=== PATIENT | male | born 1960 | race Caucasian/White ===

== ENCOUNTER → 2023-10-07 09:30 | Outpatient (REF) | payer OTHER, SELFPAY | LOC: RAD 09:30 | PROVIDERS: ATTENDING PHYSICIAN Physician Assistant Medical | DX: M25.561 Pain in right knee (principal) | CPT/HCPCS: 73564 ==

== ENCOUNTER → 2023-10-26 13:18 | Outpatient (REF) | payer OTHER, SELFPAY | LOC: HWRAD 13:18 | PROVIDERS: ATTENDING PHYSICIAN Physician Assistant Medical | DX: R22.42 Localized swelling, mass and lump, left lower limb (principal) | CPT/HCPCS: 76882 ==

== ENCOUNTER 2024-04-24 15:31 | Emergency (ER) | payer OTHER, SELFPAY ==
[2024-04-24 15:37] VITALS: BP 124/77
[2024-04-24 16:47] VITALS: BMI 31.3
--- NOTE | 2024-04-24 16:48 | ED.GENMED ---
History of Present Illness
General
Chief Complaint: Musculo-Skeletal Complaint
Source: patient
Exam Limitations: none
Time Seen by Provider: 04/24/24 16:30
Nursing documentation reviewed up to this point in time: agreed with
History of Present Illness
History of Present Illness:
63-year-old male with no reported chronic medical issues presents to the emergency room for evaluation of chest wall pain after blunt trauma. Trauma occurred 2 days ago. Patient was working underneath a golf cart which was elevated on a santhosh. He
says that the cart fell off of the santhosh and landed on top of him�he was laying flat on his back and it landed on his chest. He says that there was room between the golf cart and the ground and he was able to slide out but has had pain in his ribs
since the trauma. Decided to come to the emergency to be evaluated. He denies any shortness of breath. He denies any abdominal pain. He denies any head trauma and does not have any headache or neck pain. He denies any pain in his back. He
denies any injuries to his arms or his legs. He denies being on any blood thinners.
Past History
Past History
ED Past Medical History: None
ED Past Surgical History: None
Social History
Tobacco: Non-smoker
Review of Systems
Review of Systems
All Other Systems: ROS reviewed and negative except as documented in HPI and ROS
Respiratory: Denies trouble breathing
Cardiac: Reports chest pain
ABD/GI: Denies abdominal pain, nausea or vomiting
: Denies flank pain
Musculoskeletal: Denies joint pain, neck pain or back pain
Neurological: Denies dizzy, headache, weakness or numbness
Phy Exam
Physical Exam
Physical Exam:
General: Awake, alert, oriented x3; no acute distress
Head: Normocephalic, atraumatic
Eyes: Conjunctiva normal
Throat: Airway intact, handling secretions
Neck: Trachea midline, no cervical spine tender
Lungs: Clear to auscultation bilaterally, no wheezing, rales, rhonchi
Heart: Regular rate; he has bilateral lower parasternal tenderness somewhat worse on the left; he has tenderness along the right lower ribs 8 through 10 anterior lateral; no tenderness on the posterior ribs
Abd: Soft, non distended, mild tenderness subxiphoid and upper abdomen, no abdominal bruising
Back: No signs of trauma the back or flank and no tenderness in the posterior ribs, thoracic or lumbar spine
Neuro: No gross deficits, ambulatory
Extremities: Atraumatic, moving all extremities comfortably with no pain, warm well-perfused
Scores
Heart Failure Risk
Heart Failure Risk Score: Not Applicable
Heart Score for Chest Pain Patients
STEMI patient?: Not applicable
Withdrawal Assessment of Alcohol
Withdrawal Assessment Completed?: Not applicable
Course
Orders/Labs/Results
Orders:
Orders
04/24/24 15:43
Electrocardiogram (*1) Urgent
Reason for Study: Other
Other Reason for Exam: chest trauma
CR Ribs-doyle 4 Vw W/pa Chest Urgent
Comment:
Reason For Exam: chest trauma
04/24/24 15:44
EKG- Treatment ONCE
04/24/24 16:32
Type+Screen Urgent
CT Abd/pelvis W Iv Cont Urgent
Comment:
Reason For Exam: crushed by golf cart; chest pain
CT Chest With Iv Contrast Urgent
Comment:
Reason For Exam: crushed by golf cart; chest pain
Complete Blood Count/With Diff Urgent
Comprehensive Metabolic Panel Urgent
Vital Signs
Initial and Last Documented VS:
Initial Vital Signs
Temp Pulse Resp BP Pulse Ox
37.2 C 73 18 124/77 98
04/24/24 15:37 04/24/24 15:37 04/24/24 15:37 04/24/24 15:37 04/24/24 15:37
Last Documented Vital Signs
Temp Pulse Resp BP Pulse Ox
37.2 C 73 18 124/77 98
04/24/24 15:37 04/24/24 15:37 04/24/24 15:37 04/24/24 15:37 04/24/24 15:37
MDM/Problems Addressed
Differential Diagnosis Includes:
Blunt chest trauma: Differential includes rib fractures, pulmonary contusion, pneumothorax, bruised ribs; given location of tenderness concern also for intra-abdominal trauma such as hepatic or splenic laceration
MDM/Problems Addressed:
63-year-old male presents 2 days removed from blunt trauma as described above�was working underneath a golf cart when he fell onto his chest. Complaining of pain in the ribs. Vital signs normal. Exam as above. He was sent for a chest x-ray in
triage which showed no pneumothorax on my review. Will place an IV send for CT of the chest/abdomen/pelvis. Check screening labs. Reassess after the above.
*Radiology
Radiology exam reviewed: preliminary read by ED provider and radiology read reviewed
*Pulse Oximetry
Patient hypoxic: no
*EKG
Interpreted by ED Provider?: Yes
Heart Rate: 69
Rate: normal
Rhythm: sinus
[place]: normal axis
Interval: normal interval
QRS Pattern: normal QRS
Ischemia: no ischemia
*Critical Care Note
Total Time (30-74mins, 75-104mins- exclusive of procedures): Not Applicable
Data Reviewed
Source: patient and records
ED Attending Note
-
Portions of this chart may have been created with voice recognition software.� Occasional wrong word or��sound alike� substitutions may have occurred due to the inherent limitations of voice recognition software.
Discharge Plan
Interventions
Interventions:
*Risk Screen - Suicide Last Done: 04/24/24 16:47
*General Assessment Last Done: 04/24/24 16:47
ED- Fall Risk Assessment Last Done: 04/24/24 16:47
*ED COVID-19 Vaccine History Last Done: 04/24/24 16:47
ED-Musculoskeletal Assessment Last Done: 04/24/24 16:47
Discharge Date and Time
Print Language: MONGOLIAN
[2024-04-24 17:01] LABS: % Basophils 0.6 % (0-2); % Eosinophils 3.2 % (0-6); % Immature Granulocytes 0.4 % (0-0.5); % Lymphocytes 12.8 % (20.5-51.1); % Monocytes 7.4 % (1.7-9.3); % Neutrophils 75.6 % (42.2-75.2); Absolute Basophils 0.1 10^3/uL (0-0.2); Absolute Eosinophils 0.3 10^3/uL (0-0.7); Absolute Lymphocytes 1.3 10^3/uL (1.2-3.4); Absolute Monocytes 0.8 10^3/uL (0.1-0.6); Absolute Neutrophils 7.8 10^3/uL (1.4-6.5); Hematocrit 40.8 % (39.0-52.0); Hemoglobin 14.1 g/dL (13.0-18.0); Mean Corp Hgb Conc. 34.6 g/dL (33.0-37.0); Mean Corpuscular Hgb 29.6 pg (27.0-31.0); Mean Corpuscular Volume 85.5 fL (80.0-94.0); Mean Platelet Volume 9.5 fL (7.4-10.4); Nucleated Red Blood Cells % 0 % (-); Platelet Count 259 10^3/uL (130-400); Red Blood Cell Count 4.77 10^6/uL (4.70-6.10); Red Cell Dist. Width 13.6 % (11.5-14.5); White Blood Cell Count 10.3 10^3/uL (4.8-10.8)
[2024-04-24 17:14] LABS: ALT (SGPT) 24 U/L (0-50); AST (SGOT) 28 U/L (17-59); Albumin 4.3 g/dl (3.5-5.0); Alkaline Phosphatase 45 U/L (38-126); Blood Urea Nitrogen 10 mg/dl (9-20); Calcium 9.1 mg/dl (8.4-10.2); Carbon Dioxide 25 mmol/L (22-30); Chloride 104 mmol/L (98-107); Estimated Creatinine Clearance 83 ml/min; Glucose 96 mg/dl (70-99); Potassium 4.3 mmol/L (3.5-5.1); Sodium 139 mmol/L (135-145); Total Bilirubin 0.9 mg/dl (0.2-1.3); Total Protein 6.9 g/dl (6.3-8.2); eGFR > 60.00
[2024-04-24 20:56] VITALS: BP 121/83
== END 2024-04-24 20:57 | disposition home or self-care (01) ==
LOC: EMR 15:31
PROVIDERS: EMERGENCY PHYSICIAN Emergency Medicine; FAMILY PHYSICIAN Physician Assistant Medical
DX: S29.9XXA Unspecified injury of thorax, initial encounter (principal); R07.9 Chest pain, unspecified; X58.XXXA Exposure to other specified factors, initial encounter; Y93.89 Activity, other specified
CPT/HCPCS: 99285; 71111; 71260; 74177; 80053; 85025; 86850; 86900; 86901; 93005; Q9967

== ENCOUNTER → 2024-10-10 15:08 | Outpatient (REF) | payer OTHER, SELFPAY | LOC: RAD 15:08 | PROVIDERS: ATTENDING PHYSICIAN Family Medicine | DX: M25.561 Pain in right knee (principal) | CPT/HCPCS: 73564 ==

== ENCOUNTER → 2024-10-16 09:29 | Outpatient (REF) | payer OTHER, SELFPAY | LOC: PAVMRI 09:29 | PROVIDERS: ATTENDING PHYSICIAN Orthopaedic Surgery Sports Medicine; FAMILY PHYSICIAN Physician Assistant Medical | DX: M25.561 Pain in right knee (principal) | CPT/HCPCS: 73721 ==

== ENCOUNTER → 2025-04-10 08:50 | Outpatient (REF) | payer OTHER, SELFPAY | LOC: DHSLP 08:50 | PROVIDERS: ATTENDING PHYSICIAN Internal Medicine Critical Care Medicine; FAMILY PHYSICIAN Physician Assistant Medical | DX: G47.33 Obstructive sleep apnea (adult) (pediatric) (principal) | CPT/HCPCS: 95800 ==

== ENCOUNTER → 2025-04-16 15:20 | Outpatient (REF) | payer OTHER, SELFPAY | LOC: RAD 15:20 | PROVIDERS: ATTENDING PHYSICIAN Physician Assistant Medical | DX: K42.9 Umbilical hernia without obstruction or gangrene (principal) | CPT/HCPCS: 76705 ==

== ENCOUNTER 2025-07-04 06:31 | Day surgery (SDC) | payer OTHER, SELFPAY ==
[2025-06-26 13:36] VITALS: BMI 29.4
[2025-07-04] VITALS (9 sets, daily range): BP systolic 110–136; BP diastolic 66–81; BMI 29.4
[2025-07-04] MEDS: TYLENOL 1000 MG PO (10:13)
[2025-07-04] MEDS: NORMOSOL-R/PLASMALYTE-A 1000 IV (10:14)
--- NOTE | 2025-07-04 10:22 | W.SUR.PREOP ---
Pre-Operative Surgical Note
-
I have examined this patient prior to the performance of the scheduled procedure.
The patient's condition is unchanged from the time of the current History and
Physical and the patient is able to undergo the scheduled procedure.
--- NOTE | 2025-07-04 10:22 | HP.FOC2 ---
Focused History & Physical
Chief Complaint
HPI:
Chief Complaint: Umbilical hernia
HPI / Indication for Planned Procedure: This is a 65-year-old male who presents with a symptomatic umbilical hernia. Will plan for robotic umbilical hernia repair with mesh.
Relevant Past Medical History: Negative
Relevant Social History: Negative
Relevant Family History: Negative
Relevant Past Surgical History: Negative
Review of Systems
Review of Pertinent Systems: All Systems Negative
Medication
See Medication form for detailed medications: Yes
Medication List (including Herbals & OTC):
aspirin 81 mg tablet,delayed release 81 mg PO DAILY 06/26/25
tadalafil 1 tab PO HS 06/26/25
vitamin D3-vitamin K2 1 tab PO DAILY 06/26/25
Medications Reviewed: Yes
Allergies and Reactions
Patient has Allergies: No
Noted Allergies and Reactions:
Allergy/AdvReac Type Severity Reaction Status Date / Time
No Known Allergies Allergy Verified 07/04/25 10:07
Pertinent Physical Exam
All Other Systems: Negative
Head/Neck: Normal
Diagnosis / Assessment
This is a 65-year-old male who presents with a symptomatic umbilical hernia.
Plan / Procedure
Will plan for a robotic umbilical hernia repair with mesh.
Anesthesia/Sedation to be done by Anesthesia Provider: Yes
--- NOTE | 2025-07-04 12:03 | W.IMMPOSTOP ---
Surgical Immed Post Op Note
-
Primary Surgeon: Luis Angel Martinez MD
Assisting Surgeon: None
Pre-op Diagnosis: Umbilical hernia
Post-op Diagnosis: Same
Procedure Performed: Robotic umbilical hernia repair with mesh
Anesthesia Type: General
Specimen / Cultures: None
Estimated Blood Loss: 3 cc
Complications: None
Operative Findings: Umbilical hernia with both a supraumbilical and true umbilical hernia defects. The umbilical defect measured 1 x 1 cm, the supraumbilical defect measured 2.5 x 2.5 cm for total hernia dimensions of 4 cm long by 2.5 cm wide.
These were closed with 0 V-Loc 180 sutures. The space was then reinforced with a 11 cm round Bard soft uncoated polypropylene mesh.
--- NOTE | 2025-07-04 12:06 | OR.RPT ---
Operative Report
Operative Report
Patient Name: Jhonny Delcid
: 1960
Date of Operation: 07/04/2025
Preoperative Diagnosis: Umbilical hernia
Postoperative Diagnosis: Same
Procedure(s):
Robotic umbilical hernia repair with mesh (FAN approach)
Surgeon(s):
Dr. Martinez
Senior Accountant Analyst(s):
RENU Da Silva
Anesthesia: General
Estimated Blood Loss: 3 cc
Urine Output: None
Drains/Lines/Implants:
11 cm round Bard soft mesh
Specimens:
None
HPI/Surgical Indications:
This is a 65-year-old male who was seen in my office for a symptomatic umbilical bulge and diagnosed with a reducible umbilical hernia. Risks/Benefits/Alternatives were discussed at length, and the patient agreed to proceed with surgery.
Operative Findings: Umbilical hernia with both a supraumbilical and true umbilical hernia defects. The umbilical defect measured 1 x 1 cm, the supraumbilical defect measured 2.5 x 2.5 cm for total hernia dimensions of 4 cm long by 2.5 cm wide.
These were closed with 0 V-Loc 180 sutures. The space was then reinforced with a 11 cm round Bard soft uncoated polypropylene mesh.
Procedure Description:
The patient was brought to the Operating Room and placed in the supine position with the arms tucked. IV antibiotics were infused and Venodyne stockings placed. Following uneventful induction of general endotracheal anesthesia, an orogastric tube
was placed. The abdomen was prepped and draped in the usual sterile fashion. The abdomen was entered using a Veress technique which required 1 pass, pneumoperitoneum to 15 mmHg was obtained without difficulty. An 8mm trochar was passed through the
abdominal wall roughly 20 cm laterally from the defect in the left upper quadrant, we then confirmed that no inadvertent injury was made while passing the trocar or Veress needle. We then placed two additional 8 mm ports in the left lower quadrant.
Bilateral tap blocks were performed. The robot was docked. We then introduced our prograsper through the inferior/left hand port and a monopolar scissors through the superior port. We then turned our attention to the hernia which had no
intra-abdominal contents. We then began taking a flap down roughly 6 cm away from the defect and roughly 12 cm in length taking care to stay in the pretransversalis plane. The preperitoneal fat was taken down off of the posterior rectus sheath
both superior and inferior to the hernia defect such that we were able to get our 'volcano sign'. We then worked on reducing the defect which contained preperitoneal fat and continued our dissection out laterally for an additional 6 to 7 cm. There
were infected 2 separate defects by about a centimeter. There was a 1 cm round true umbilical defect as well as a 2.5 cm supraumbilical defect which contained a significant amount of preperitoneal fat and was the likely true symptomatic
hernia. Once our flap was created we introduced a ruler and a 0 V-Loc 180. The total hernia dimensions were 4 cm long by 2.5 cm wide. The pocket measured 12 x 12 cm. I had my clinical services assistant cut a 11 x 11 cm piece of Bard soft mesh marked with 0
Vicryl suture at the center, as I closed the umbilical defect. The mesh was then sutured to the posterior rectus sheath in 4 quadrants with 2-0 vircyls to ensure good apposition. A 2-0 Monocryl was introduced which was used to close our flap. All
sutures were removed. The robot was undocked. The ports were removed under direct visualization and pneumoperitoneum was evacuated. The port sites were closed with 4-0 Monocryl followed by Dermabond. Counts were correct and overall, the patient
tolerated the procedure well and was taken to the Recovery Room postoperatively in stable condition.
I was the attending physician and performed the procedure with assistance of the PA above. The assistance of RENU Da Silva was required due to the complexity of the procedure. During the procedure Jazzy assisted with port placement, instrument
and needle exchanges, and closure of the wound. I was present for all portions of the case, excluding skin closure.
Luis Angel Martinez MD
== END 2025-07-04 14:35 | disposition home or self-care (01) ==
LOC: SDS 06:31
PROVIDERS: ATTENDING PHYSICIAN Surgery; FAMILY PHYSICIAN Physician Assistant Medical
DX: K42.9 Umbilical hernia without obstruction or gangrene (principal)
CPT/HCPCS: 49591; 36415; 93005; C1781